=== PATIENT | female | born 1990 | race Caucasian/White ===

== ENCOUNTER 2016-12-15 11:34 | Emergency (ER) | payer OTHER ==
[~2016-12-15] VITALS: Ht 167.6 cm; Wt 73.5 kg
[~2016-12-15 11:34] MED LIST: ADVIL,NUPRIN,M200 MG PO; AMOXICILLIN875 MG PO; Augmentin PO; MOTRIN600 MG PO; NAPROSYN500 MG PO; NORCO 5/3251 TABLET PO; Percocet 5/325,Endoc PO; TYLENOL PM EX-1 EACH PO; TYLENOL REGULA325 MG PO; ZOFRAN4 MG PO
[2016-12-15] MEDS ORDERED: AUGMENTIN875 MG PO ×2 (14:30→15:11)
[2016-12-15] MEDS ORDERED: NAPROSYN500 MG PO (14:30)
[2016-12-15 15:16] VITALS: BP 113/82
== END 2016-12-15 15:17 | disposition home or self-care (01) ==
LOC: EME 11:34 → EXP 11:34
DX: S31.815A Open bite of right buttock, initial encounter (principal); S71.111A Laceration without foreign body, right thigh, initial encounter; W54.0XXA Bitten by dog, initial encounter; Z23 Encounter for immunization; F17.200 Nicotine dependence, unspecified, uncomplicated
CPT/HCPCS: 99281; 99284

== ENCOUNTER 2018-01-24 11:31 | Emergency (ER) | payer OTHER ==
[~2018-01-24] VITALS: Ht 167.6 cm; Wt 83.4 kg
[~2018-01-24 11:31] MED LIST changes: +AUGMENTIN875 MG PO
[2018-01-24 14:23] VITALS: BP 122/76
== END 2018-01-24 14:28 | disposition home or self-care (01) ==
LOC: EME 11:31
DX: O98.519 Other viral diseases complicating pregnancy, unspecified trimester (principal); R05 Cough; O99.519 Diseases of the respiratory system complicating pregnancy, unspecified trimester; J45.909 Unspecified asthma, uncomplicated; O99.340 Other mental disorders complicating pregnancy, unspecified trimester; F41.9 Anxiety disorder, unspecified; F32.9 Major depressive disorder, single episode, unspecified; O99.330 Smoking (tobacco) complicating pregnancy, unspecified trimester; Z72.0 Tobacco use
CPT/HCPCS: 71046; 87502; 99281; 99284; J2405; J2765; J7030

== ENCOUNTER 2018-06-21 00:09 | Outpatient (CLI) | payer OTHER ==
[2018-06-21 00:34] VITALS: BP 131/61
[2018-06-21] MEDS ORDERED: PEPTO-BISM525 MG/15 PO (01:31)
== END 2018-06-21 02:30 | disposition home or self-care (01) ==
LOC: LDRP-OP 00:09 → 2WEST 00:10 → LDRP-OP 08-28 11:08
DX: O26.893 Other specified pregnancy related conditions, third trimester (principal); Z3A.34 34 weeks gestation of pregnancy
CPT/HCPCS: 59025; G0378